=== PATIENT | female | born 1940 | race Two or more races ===

== ENCOUNTER 2019-11-30 15:51 | Inpatient (IN) | payer MEDICARE, OTHER ==
[~2019-11-30] VITALS: Ht 167.6 cm; Wt 73.5 kg
[~2019-11-30 15:51] MED LIST: CARV6.252 PO; FURO-144 PO; INSU3INS6 SQ; METO2.5T2 PO; SIMV80TA90 PO
--- NOTE | 2019-11-30 15:52 | NUR ---
PT BIBRA FRM B&C FOR SOB AND NOTER LOW O2 SATURATION. 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 KEPT RESTED AND COMFORTABLE. WILL CONTINUE TO MONITOR.
--- NOTE | 2019-11-30 16:00 | NUR ---
PT IV LINE ESTABLISHED BLOOD DRAWN AND SENT TO LAB.
--- NOTE | 2019-11-30 16:05 | NUR ---
SEEN AND EXAMINED BY .
--- NOTE | 2019-11-30 16:10 | NUR ---
CALLED LAB FOR COVID SWAB.
[2019-11-30] MEDS ORDERED: FUROSEMIDE 40 MG/4 ML VIAL ONE (16:12)
--- NOTE | 2019-11-30 16:17 | NUR ---
RT AT BEDSIDE FOR ABG.
[2019-11-30 16:28] LABS: BASOPHILS # (AUTO) 0.1 /CMM (0.0-0.2); BASOPHILS % (AUTO) 1.1 % (0.0-2.0); EOSINOPHILS % (AUTO) 0.9 % (0.0-6.0); HEMATOCRIT 32 % (33-45); HEMOGLOBIN 9.6 g/dL (11.5-14.8); LYMPHOCYTES # (AUTO) 0.9 /CMM (0.8-4.8); LYMPHOCYTES % (AUTO) 6.7 % (20.0-44.0); MEAN CORPUSCULAR HGB CONC 30 g/dl (31.0-36.0); MEAN CORPUSCULAR VOLUME 88 fL (82-100); MONOCYTES # (AUTO) 0.5 /CMM (0.1-1.30); MONOCYTES % (AUTO) 4.2 % (2.0-12.0); NEUTROPHILS # (AUTO) 11.5 /CMM (1.8-8.9); NEUTROPHILS % (AUTO) 87.1 % (43.0-81.0); PLATELET COUNT (AUTO) 283 /CMM (150-450); RED BLOOD CELL COUNT(AUTO) 3.68 MIL/uL (4.0-5.2); WHITE BLOOD COUNT (AUTO) 13.1 K/uL (4.3-11.0)
[2019-11-30] MEDS ORDERED: FUROSEMIDE 40 MG/4 ML VIAL IV ONE ×2 (16:30→23:30)
[2019-11-30 16:35] LABS: CALCIUM, SERUM 10.7 mg/dL (8.5-10.1); CARBON DIOXIDE 33 mmol/L (21-32); CHLORIDE 104 mmol/L (98-107); CREATININE 1.6 mg/dL (0.6-1.3); GLUCOSE 133 mg/dL (74-106); POTASSIUM 4.1 mmol/L (3.5-5.1); SODIUM SERUM 144 mmol/L (136-145); UREA NITROGEN, BLOOD 42 mg/dL (7-18)
[2019-11-30] MEDS ORDERED: CYAN-6 IM (16:43)
[2019-11-30] MEDS ORDERED: SERT25TA PO (16:43)
[2019-11-30] MEDS ORDERED: AMLO5TAB9 PO (16:43)
[2019-11-30] MEDS ORDERED: CLOP75TA15 PO (16:43)
[2019-11-30] MEDS ORDERED: HYDR-4075 PO (16:43)
[2019-11-30] MEDS ORDERED: BIOT10006 PO (16:43)
[2019-11-30] MEDS ORDERED: ALLO100T PO (16:43)
[2019-11-30] MEDS ORDERED: INSU3INS9 SQ (16:43)
[2019-11-30] MEDS ORDERED: LOSA100T31 PO (16:43)
[2019-11-30] MEDS ORDERED: FERR325T23 PO (16:43)
[2019-11-30] MEDS ORDERED: POTA10TA11 PO (16:43)
[2019-11-30] MEDS ORDERED: ZOLP5TAB8 PO (16:43)
[2019-11-30] MEDS ORDERED: CALC500T52 PO (16:43)
[2019-11-30] MEDS ORDERED: OMEP40CA13 PO (16:43)
[2019-11-30 16:45] LABS: ABG OXYGEN SATURATION 95.1 % (92.0-98.5); ABG PCO2 49.4 mmHg (35.0-45.0); ABG PH 7.355 (7.350-7.450); ABG PO2 83.4 mmHg (75.0-100.0); COHb 0.3 % (0.5-1.5); MetHb 0.4 % (0.0-1.5); O2Hb 94.4 % (94.0-97.0); SITE, ABG Right Radial; VENT MODE, BG 3L NC
[2019-11-30 16:47] LABS: ALANINE AMINOTRANSFERASE 15 U/L (12-78); ALBUMIN 3.4 g/dL (3.4-5.0); ALKALINE PHOSPHATASE 159 U/L (46-116); ASPARTATE AMINOTRANSFERASE 24 U/L (15-37); B-TYPE NATRIURETIC PEPTIDE 5837 PG/ML (0-125); BILIRUBIN,DIRECT 0.1 mg/dL (0.0-0.2); BILIRUBIN,TOTAL 0.4 mg/dL (0.2-1.0); TOTAL PROTEIN, SERUM 7.5 g/dL (6.4-8.2)
--- NOTE | 2019-11-30 17:19 | NUR ---
CALLED NURSING SUP FOR TELE BED.
--- NOTE | 2019-11-30 17:55 | NUR ---
NURSING SUP GAVE TELE BED 115-1.
--- NOTE | 2019-11-30 18:01 | NUR ---
REPORT GIVEN TO JESSICA MIN FOR FABI.
--- NOTE | 2019-11-30 19:55 | NUR ---
RN OPENING NOTE PT RECEIVED IN BED. PT IS A/A/ O X3. NO S/S OF DISTRESS. PT IS ON 3L O2 VIA NC SATING 97%. NO SOB NOTED. PT HAS R AC 20G PATENT FLUSHES WELL. SAFETY MEASURES IN PLACE BED AT THE LOWEST POSITION, LOCKED, SIDE RAILS UP X2, CALL LIGHT IN REACH WILL CONTINUE TO MONITOR.
[2019-11-30 20:00] VITALS: BP 139/59
[2019-11-30 20:31] VITALS: BP 139/52
[2019-11-30] MEDS: HEPARIN SODIUM, PORCINE 5000 UNITS/1 ML VIAL SQ SCH (23:27)
[2019-11-30] MEDS: ATORVASTATIN 40 MG TABLET PO SCH (23:28)
[2019-11-30] MEDS ORDERED: Z GUARD REMEDY 2 OZ OINT TP PRN (23:30)
[2019-11-30] MEDS ORDERED: ACETAMINOPHEN 325 MG TABLET PO PRN (23:30)
[2019-11-30] MEDS ORDERED: HYDROCODONE/APAP 5/325MG 1 EACH TABLET PO PRN (23:30)
[2019-11-30] MEDS ORDERED: ONDANSETRON HCL/PF 4 MG/2 ML VIAL IVP PRN (23:30)
[2019-11-30 23:39] LABS: C-REACTIVE PROTEIN 1.6 mg/dL (0.0-0.9)
[2019-12-01] VITALS (8 sets, daily range): BP systolic 129–156; BP diastolic 56–75
[2019-12-01 03:07] LABS: BILIRUBIN,URINE NEGATIVE (NEGATIVE); KETONES,URINE NEGATIVE (NEGATIVE); LEUKOCYTE ESTERASE ,URINE 2+ (NEGATIVE); NITRITE, URINE NEGATIVE (NEGATIVE); UGLUCOSE NEGATIVE (NEGATIVE); UROBILINOGEN,URINE 0.2 EU/dL (0.2)
[2019-12-01 03:08] LABS: APPEARANCE,URINE CLOUDY (CLEAR); BLOOD, URINE 2+ Ery/uL (NEGATIVE); COLOR,URINE YELLOW (YELLOW); PROTEIN,URINE 2+ mg/dl (NEGATIVE)
[2019-12-01 03:09] LABS: BACTERIA,URINE Moderate /HPF (None Seen); SQUAMOUS EPITHELIAL CELL,UR Moderate /HPF (None Seen); WBC,URINE TOO NUMEROUS TO COUN /HPF (0-3)
--- NOTE | 2019-12-01 06:42 | NUR ---
RN CLOSING NOTE PT REMAINED STABLE DURING MY SHIFT. VSS, NO SOB NOTED. WILL ENDORSE TO INCOMING SHIFT FOR FABI.
[2019-12-01 06:59] LABS: BASOPHILS # (AUTO) 0.2 /CMM (0.0-0.2); BASOPHILS % (AUTO) 1.3 % (0.0-2.0); HEMATOCRIT 31 % (33-45); HEMOGLOBIN 9.3 g/dL (11.5-14.8); LYMPHOCYTES % (AUTO) 8.2 % (20.0-44.0); MEAN CORPUSCULAR HGB CONC 30 g/dl (31.0-36.0); MEAN CORPUSCULAR VOLUME 86 fL (82-100); MONOCYTES # (AUTO) 0.7 /CMM (0.1-1.30); MONOCYTES % (AUTO) 5.6 % (2.0-12.0); NEUTROPHILS # (AUTO) 10.4 /CMM (1.8-8.9); NEUTROPHILS % (AUTO) 82.9 % (43.0-81.0); PLATELET COUNT (AUTO) 284 /CMM (150-450); WHITE BLOOD COUNT (AUTO) 12.5 K/uL (4.3-11.0)
[2019-12-01 07:21] LABS: CALCIUM, SERUM 10.8 mg/dL (8.5-10.1); CARBON DIOXIDE 31 mmol/L (21-32); CHLORIDE 102 mmol/L (98-107); CREATININE 1.5 mg/dL (0.6-1.3); GLUCOSE 78 mg/dL (74-106); MAGNESIUM 2.1 mg/dL (1.8-2.4); PHOSPHORUS 2.9 mg/dL (2.5-4.9); POTASSIUM 3.6 mmol/L (3.5-5.1); SODIUM SERUM 142 mmol/L (136-145); UREA NITROGEN, BLOOD 40 mg/dL (7-18)
[2019-12-01 07:22] LABS: CHOLESTEROL 120 mg/dL (<200); HDL CHOLESTEROL 65 mg/dL (40-60); LDL 40 mg/dL (0-99); TRIGLYCERIDES 91 mg/dL (30-150)
--- NOTE | 2019-12-01 07:30 | NUR ---
RECEIVED PATIENT IN BED. NO ACUTE DISTRESS NOTED. PATIENT ALERT & ORIENTED x3. PATIENT ON 3L OXYGEN VIA NASAL CANNULA, SATURATING WELL, BREATHING EVEN AND UNLABORED. 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 PATIENT IV ACCESS RIGHT FOREARM INTACT, PATENT, FLUSHED WELL. PATIENT SAFETY MAINTAINED. CALL LIGHT WITHIN REACH. WILL CONTINUE TO MONITOR.
[2019-12-01] MEDS: HEPARIN SODIUM, PORCINE 5000 UNITS/1 ML VIAL SQ SCH ×2 (08:14→23:41)
[2019-12-01] MEDS: SERTRALINE HCL 25 MG TABLET PO SCH (08:17)
[2019-12-01] MEDS: AMLODIPINE BESYLATE 5 MG TABLET PO SCH (08:17)
[2019-12-01] MEDS: CALCIUM CARBONATE (1250) 500 MG TABLET PO SCH (08:18)
[2019-12-01] MEDS: ALLOPURINOL 100 MG TABLET PO SCH ×2 (08:18→23:40)
[2019-12-01] MEDS: PANTOPRAZOLE 40 MG TABLET.DR PO SCH (08:18)
[2019-12-01] MEDS: CLOPIDOGREL BISULFATE 75 MG TABLET PO SCH (08:18)
--- NOTE | 2019-12-01 08:59 | NUR ---
WOUND CARE CONSULT: REVIEWED CHART, NURSING DOCUMENTATION AND PHOTOS WHICH WHICH SHOW BRUISING/DISCOLORATION TO LEGS, REDNESS AND DISCOLORATION/RASH TO BUTTOCKS PRESENT ON ADMISSION. RECOMMENDATIONS MADE FOR SKIN PROTECTION AND SKIN CARE. DISCUSSED WITH NURSING STAFF. CURRENT THADDEUS SCORE IS 14. WILL SEE PRN. M D IN AGREEMENT WITH PLAN OF CARE.
[2019-12-01] MEDS ORDERED: FERROUS SULFATE (325 MG) 325 MG/TAB TABLET PO SCH (09:00)
[2019-12-01] MEDS ORDERED: POTASSIUM CHLORIDE 10 MEQ TABLET.SA PO SCH (09:00)
[2019-12-01] MEDS ORDERED: FUROSEMIDE 40 MG/4 ML VIAL IV SCH (09:00)
[2019-12-01] MEDS ORDERED: CEFTRIAXONE 1 G VIAL IM SCH (09:30)
[2019-12-01] MEDS: CLOTRIMAZOLE 1% 15 GM TUBE TP SCH ×2 (09:32→16:56)
[2019-12-01] MEDS: CEFTRIAXONE 1 G in IV D5W 50 ML IV SCH (10:29)
[2019-12-01] MEDS: POTASSIUM CHLORIDE 20 MEQ TAB.PRT.SR PO SCH ×3 (10:30→12:09)
[2019-12-01] MEDS: FUROSEMIDE 100 MG/10 ML VIAL IV SCH ×3 (11:09→19:34)
[2019-12-01] MEDS ORDERED: QUETIAPINE FUMARATE 25 MG TABLET PO ONE (13:00)
[2019-12-01] MEDS: hydrALAZINE HCL 10 MG TABLET PO SCH (14:08)
--- NOTE | 2019-12-01 18:23 | NUR ---
PATIENT COMPLAINS OF CHEST PAIN. DR. CHANEL NOTIFIED, EKG AND TROPONIN ORDERED.
--- NOTE | 2019-12-01 18:27 | NUR ---
PATIENT IN BED. NO ACUTE DISTRESS NOTED. PATIENT ALERT & ORIENTED x3. PATIENT ON 3L OXYGEN VIA NASAL CANNULA, SATURATING WELL, BREATHING EVEN AND UNLABORED. 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 PATIENT IV ACCESS RIGHT FOREARM INTACT, PATENT, FLUSHED WELL. PATIENT SAFETY MAINTAINED. CALL LIGHT WITHIN REACH. WILL ENDORSE PLAN OF CARE TO ONCOMING NURSE FOR CONTINUITY OF CARE
--- NOTE | 2019-12-01 19:15 | NUR ---
RN OPENING NOTE PATIENT IN BED. NO ACUTE DISTRESS NOTED. PATIENT A/O x3. PATIENT ON 3L OXYGEN VIA NASAL CANNULA, SATURATING WELL, BREATHING EVEN AND UNLABORED. 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 PATIENT IV ACCESS TO RIGHT FOREARM INTACT, PATENT, FLUSHED WELL. ASCENCIO CATH DRAINING YELLOW URINE, PATIENT SAFETY MEASURE IN PLACE. BED LOCKED AND IN LOWEST POSITION CALL LIGHT WITHIN REACH WILL CONTINUE TO MONITOR PT
--- NOTE | 2019-12-01 20:40 | NUR ---
RN NOTE ENDORSED PT TO KARISHMA LOPEZ FOR FABI
--- NOTE | 2019-12-01 21:30 | NUR ---
RN OPENING NOTE PATIENT IN BED. NO ACUTE DISTRESS NOTED. PATIENT A/O x3. PATIENT ON 3L OXYGEN VIA NASAL CANNULA, SATURATING WELL, BREATHING EVEN AND UNLABORED. 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 PATIENT IV ACCESS TO RIGHT FOREARM INTACT, PATENT, FLUSHED WELL. ASCENCIO CATH DRAINING YELLOW URINE, PATIENT SAFETY MEASURE IN PLACE. BED LOCKED AND IN LOWEST POSITION CALL LIGHT WITHIN REACH. WILL CONTINUE TO MONITOR PT
[2019-12-01] MEDS: ATORVASTATIN 40 MG TABLET PO SCH (23:40)
[2019-12-02] VITALS: BP 127/63
[2019-12-02 06:43] LABS: BASOPHILS # (AUTO) 0.1 /CMM (0.0-0.2); BASOPHILS % (AUTO) 0.8 % (0.0-2.0); EOSINOPHILS % (AUTO) 1.7 % (0.0-6.0); HEMATOCRIT 31 % (33-45); HEMOGLOBIN 9.4 g/dL (11.5-14.8); LYMPHOCYTES # (AUTO) 1.2 /CMM (0.8-4.8); LYMPHOCYTES % (AUTO) 11.5 % (20.0-44.0); MEAN CORPUSCULAR HGB CONC 30 g/dl (31.0-36.0); MEAN CORPUSCULAR VOLUME 86 fL (82-100); MONOCYTES # (AUTO) 0.6 /CMM (0.1-1.30); MONOCYTES % (AUTO) 5.7 % (2.0-12.0); NEUTROPHILS # (AUTO) 8.2 /CMM (1.8-8.9); NEUTROPHILS % (AUTO) 80.3 % (43.0-81.0); PLATELET COUNT (AUTO) 264 /CMM (150-450); RED BLOOD CELL COUNT(AUTO) 3.62 MIL/uL (4.0-5.2); WHITE BLOOD COUNT (AUTO) 10.2 K/uL (4.3-11.0)
[2019-12-02 06:59] LABS: ALBUMIN 2.9 g/dL (3.4-5.0); BILIRUBIN,TOTAL 0.5 mg/dL (0.2-1.0); CALCIUM, SERUM 10.7 mg/dL (8.5-10.1); CREATININE 1.3 mg/dL (0.6-1.3); MAGNESIUM 2.1 mg/dL (1.8-2.4); PHOSPHORUS 3.3 mg/dL (2.5-4.9); POTASSIUM 3.7 mmol/L (3.5-5.1)
[2019-12-02 07:23] LABS: OCCULT BLOOD STOOL NEGATIVE (NEGATIVE)
--- NOTE | 2019-12-02 07:30 | NUR ---
RECEIVED PATIENT IN BED. NO ACUTE DISTRESS NOTED. PATIENT ALERT & ORIENTED X3. PATIENT ON 3L OXYGEN VIA NASAL CANNULA, SATURATING WELL AT 97%. 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 PATIENT RIGHT ANTECUBITAL IV ACCESS INTACT, PATENT, FLUSHED WELL. PATIENT ASCENCIO CATHETER IN PLACE, INTACT, PATENT, DRAINING TO GRAVITY. PATIENT SAFETY MAINTAINED. CALL LIGHT WITHIN REACH. WILL CONTINUE TO MONITOR.
[2019-12-02 08:00] VITALS: BP 135/69
[2019-12-02] MEDS: PANTOPRAZOLE 40 MG TABLET.DR PO SCH (08:17)
[2019-12-02] MEDS: AMLODIPINE BESYLATE 5 MG TABLET PO SCH (08:17)
[2019-12-02] MEDS: HEPARIN SODIUM, PORCINE 5000 UNITS/1 ML VIAL SQ SCH ×2 (08:17→21:07)
[2019-12-02] MEDS: SERTRALINE HCL 25 MG TABLET PO SCH (08:17)
[2019-12-02] MEDS: CALCIUM CARBONATE (1250) 500 MG TABLET PO SCH (08:17)
[2019-12-02] MEDS: CLOPIDOGREL BISULFATE 75 MG TABLET PO SCH (08:17)
[2019-12-02] MEDS: ALLOPURINOL 100 MG TABLET PO SCH ×2 (08:17→21:05)
[2019-12-02] MEDS: CLOTRIMAZOLE 1% 15 GM TUBE TP SCH ×2 (08:18→16:32)
[2019-12-02] MEDS: FUROSEMIDE 100 MG/10 ML VIAL IV SCH ×3 (09:10→16:31)
[2019-12-02] MEDS: POTASSIUM CHLORIDE 20 MEQ TAB.PRT.SR PO SCH ×3 (09:10→12:39)
[2019-12-02 09:34] LABS: IRON, SERUM 26 ug/dl (50-175); TOTAL IRON BINDING CAPACITY 188 ug/dl (250-450)
[2019-12-02 09:47] LABS: FERRITIN 126 ng/mL (8-388)
[2019-12-02] MEDS: CEFTRIAXONE 1 G in IV D5W 50 ML IV SCH (10:36)
[2019-12-02 12:00] VITALS: BP 137/55
[2019-12-02] MEDS: hydrALAZINE HCL 10 MG TABLET PO SCH (14:49)
[2019-12-02 16:00] VITALS: BP 127/70
[2019-12-02] MEDS: WARFARIN SODIUM 2.5 MG TABLET PO SCH (16:32)
[2019-12-02] MEDS: DOXYCYCLINE HYCLATE (100 MG) 100 MG TABLET PO SCH (17:16)
--- NOTE | 2019-12-02 18:32 | NUR ---
PATIENT IN BED. NO ACUTE DISTRESS NOTED. PATIENT ALERT & ORIENTED X3. PATIENT ON 3L OXYGEN VIA NASAL CANNULA, SATURATING WELL AT 97%. 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 PATIENT RIGHT ANTECUBITAL IV ACCESS INTACT, PATENT, FLUSHED WELL. PATIENT ASCENCIO CATHETER IN PLACE, INTACT, PATENT, DRAINING TO GRAVITY. PATIENT SAFETY MAINTAINED. CALL LIGHT WITHIN REACH. WILL ENDORSE PLAN OF CARE TO ONCOMING NURSE FOR CONTINUITY OF CARE
--- NOTE | 2019-12-02 19:10 | NUR ---
RN OPENING NOTES: Received pt in bed awake, A&O3. On isolation precautions for R/O Covid. On 3L/min NC tolerating well. No SOB or respiratory distress noted. A-fib on tele monitor. IV site on RAC #20 patent and flushing. Dressing c/d/i. Piña cath in place patent and draining urine via gravity. Safety measures in place. Will continue to monitor.
[2019-12-02 20:00] VITALS: BP 135/45
[2019-12-02] MEDS: MUPIROCIN OINT 2% 22 GM TUBE SCH (21:05)
[2019-12-02] MEDS: ATORVASTATIN 40 MG TABLET PO SCH (21:05)
--- NOTE | 2019-12-02 23:02 | NUR ---
RN NOTE: Pt noted to be anxious and yelling. 1058: Paged regional production manager, Jorge Luis Perdomo to give update on pt's condition. 1100: Jorge Luis Perdomo called back. Rec'd orders for Ativan 0.5mg PO once. Order noted and carried out.
[2019-12-02] MEDS ORDERED: LORAZEPAM 0.5 MG TABLET PO ONE (23:30)
[2019-12-03] VITALS: BP 137/50
[2019-12-03 04:00] VITALS: BP 139/47
[2019-12-03 05:54] LABS: BASOPHILS # (AUTO) 0.2 /CMM (0.0-0.2); BASOPHILS % (AUTO) 1.6 % (0.0-2.0); EOSINOPHILS % (AUTO) 1.9 % (0.0-6.0); HEMATOCRIT 29 % (33-45); HEMOGLOBIN 8.8 g/dL (11.5-14.8); LYMPHOCYTES # (AUTO) 1.1 /CMM (0.8-4.8); MEAN CORPUSCULAR HGB CONC 31 g/dl (31.0-36.0); MEAN CORPUSCULAR VOLUME 87 fL (82-100); MONOCYTES # (AUTO) 0.7 /CMM (0.1-1.30); MONOCYTES % (AUTO) 6.9 % (2.0-12.0); NEUTROPHILS # (AUTO) 7.4 /CMM (1.8-8.9); NEUTROPHILS % (AUTO) 77.6 % (43.0-81.0); PLATELET COUNT (AUTO) 243 /CMM (150-450); RED BLOOD CELL COUNT(AUTO) 3.32 MIL/uL (4.0-5.2); WHITE BLOOD COUNT (AUTO) 9.5 K/uL (4.3-11.0)
[2019-12-03 06:21] LABS: ALANINE AMINOTRANSFERASE 11 U/L (12-78); ALBUMIN 2.6 g/dL (3.4-5.0); ALKALINE PHOSPHATASE 130 U/L (46-116); ASPARTATE AMINOTRANSFERASE 16 U/L (15-37); BILIRUBIN,TOTAL 0.3 mg/dL (0.2-1.0); CALCIUM, SERUM 10.1 mg/dL (8.5-10.1); CARBON DIOXIDE 35 mmol/L (21-32); CHLORIDE 103 mmol/L (98-107); CREATININE 1.5 mg/dL (0.6-1.3); GLUCOSE 162 mg/dL (74-106); PHOSPHORUS 3.5 mg/dL (2.5-4.9); POTASSIUM 3.8 mmol/L (3.5-5.1); SODIUM SERUM 141 mmol/L (136-145); TOTAL PROTEIN, SERUM 6.4 g/dL (6.4-8.2); UREA NITROGEN, BLOOD 39 mg/dL (7-18)
--- NOTE | 2019-12-03 06:42 | NUR ---
RN CLOSING NOTES: Pt remains on isolation precautions for Covid. Remains on 3L/min NC tolerating well. No SOB or respiratory distress noted during shift. No acute changes noted throughout shift. IV on RAC #20 patent and flushed. Piña cath in place patent and draining urine. Safety measures in place. Will endorse to AM nurse for FABI.
[2019-12-03 08:00] VITALS: BP 130/76
--- NOTE | 2019-12-03 08:07 | NUR ---
DIRECTOR OPERATIONS BROADCAST NOTE PATIENT IN BED ,ALERT ORIENTED, [place] SPEAKING, ON 3L NC ,WITH SLIGHT SOB NOTED AT THIS TIME , SAT 98%, ON TELE MONITOR AFIB HR 74,HAVING BREAKFAST , ON FLUIDS RESTRICTION,BED IN LOWEST AND LOCKED POSITION, CALL LIGHT WITHIN REACH, WILL MONITOR
[2019-12-03] MEDS: FUROSEMIDE 100 MG/10 ML VIAL IV SCH ×3 (08:44→16:41)
[2019-12-03] MEDS: PANTOPRAZOLE 40 MG TABLET.DR PO SCH (08:45)
[2019-12-03] MEDS: CALCIUM CARBONATE (1250) 500 MG TABLET PO SCH (08:45)
[2019-12-03] MEDS: DOXYCYCLINE HYCLATE (100 MG) 100 MG TABLET PO SCH ×2 (08:45→20:56)
[2019-12-03] MEDS: SERTRALINE HCL 25 MG TABLET PO SCH (08:45)
[2019-12-03] MEDS: ALLOPURINOL 100 MG TABLET PO SCH ×3 (08:45→21:23)
[2019-12-03] MEDS: AMLODIPINE BESYLATE 5 MG TABLET PO SCH (08:45)
[2019-12-03] MEDS: MUPIROCIN OINT 2% 22 GM TUBE SCH ×2 (09:00→20:57)
[2019-12-03] MEDS: CLOTRIMAZOLE 1% 15 GM TUBE TP SCH ×2 (09:04→16:42)
[2019-12-03] MEDS: CLOPIDOGREL BISULFATE 75 MG TABLET PO SCH (09:04)
[2019-12-03] MEDS: HEPARIN SODIUM, PORCINE 5000 UNITS/1 ML VIAL SQ SCH ×2 (09:05→20:55)
--- NOTE | 2019-12-03 09:20 | NUR ---
director television note per dr villatoro ok to to give plavix and heparin at this time till inr > 2 ,will monitor
[2019-12-03] MEDS: CEFTRIAXONE 1 G in IV D5W 50 ML IV SCH (10:17)
--- NOTE | 2019-12-03 11:00 | NUR ---
rn telephonic note spoke with Corin Abreu rn outpatient services director notified that patent on Lasix iv, may need k supplement, stated will monitor for tomorrow also notified that patient become anxious at times , on o2 as ordered, will monitor closely ,still on isolation r\o covid -19
[2019-12-03 12:00] VITALS: BP 144/65
--- NOTE | 2019-12-03 13:06 | NUR ---
emergency telecommunications dispatcher note at risk for aspiration, unable to eat regular diet , Corin jacobo roading engineer notified with order to have pure diet , will f\u
[2019-12-03 14:07] LABS: PTH, INTACT 37 pg/mL (15-65)
[2019-12-03] MEDS: hydrALAZINE HCL 10 MG TABLET PO SCH (14:27)
[2019-12-03 16:00] VITALS: BP 140/90
[2019-12-03] MEDS: WARFARIN SODIUM 2.5 MG TABLET PO SCH (16:41)
--- NOTE | 2019-12-03 17:00 | NUR ---
TRAFFIC AND TRANSPORT PLANNER NOTE NOTED NOSE BLEEDING, DR LOCK NOTIFIED,AWARE THAT PATIENT ON COUMADIN ,OK TO GIVE PER DR LOCK AND INR IN AM ,WILL F\U
--- NOTE | 2019-12-03 18:25 | NUR ---
CASING PULLER NOTE FED PATIENT, ATE 100%,ALL NEEDS ATTENDED ,KEEP CLEAN DRY ,WILL MONITOR
[2019-12-03 20:00] VITALS: BP 150/69
--- NOTE | 2019-12-03 20:00 | NUR ---
RN OPENING NOTE PT RECEIVED IN BED LAYING DOWN COMFORTABLY, PT IS A/A /O X3. PT IS ON 3 L VIA NC SATING 96%, NO SOB NOTED TELE MONITOR SHOWING A FIB WITH HR IN 60s .SAFETY MEASURES IN PLACE BED AT LOWEST POSITION AND LOCKED, SIDE RAILS UP X2, CALL LIGHT IN REACH, HOB ELEVATED. WILL CONTINUE TO MONITOR.
[2019-12-03] MEDS: ATORVASTATIN 40 MG TABLET PO SCH (22:08)
[2019-12-04] VITALS: BP 128/59
[2019-12-04 04:00] VITALS: BP 152/58
--- NOTE | 2019-12-04 06:49 | NUR ---
RN CLOSING NOTE PT REMAINED STABLE DURING MY SHIFT, VSS, NO SOB NOTED, WILL ENDORSE TO INCOMING SHIFT FOR FABI.
[2019-12-04] MEDS: PANTOPRAZOLE 40 MG TABLET.DR PO SCH (07:36)
--- NOTE | 2019-12-04 07:50 | NUR ---
RN opening note Received patient in bed AO x 2-3, Georgian speaking, able to responds all stimuli. Does no appears pain or any discomfort. Skin is warm to touch, kept clean/dry, intact IV site saline lock. Respiratory even and unlabored with oxygen at 3LPM via N/C, and no distress observed, in stable vital sign. Keep bed in locked with low elevated HOB and low position of the bed. Call light within reach, will continue to monitor.
[2019-12-04 08:00] VITALS: BP 133/82
--- NOTE | 2019-12-04 08:00 | NUR ---
RN opening note Received patient in bed AO x 2-3, Tajik speaking, able to responds all stimuli. Does no appears pain or any discomfort. Skin is warm to touch, kept clean/dry, intact IV site saline lock. Respiratory even and unlabored with oxygen at 3LPM via N/C, and no distress observed, in stable vital sign. Keep bed in locked with low elevated HOB and low position of the bed. Call light within reach, will continue to monitor. Addendum: 12/04/19 at 0813 by XAVIER GOULD RN Error
[2019-12-04] MEDS: CALCIUM CARBONATE (1250) 500 MG TABLET PO SCH (08:20)
[2019-12-04] MEDS: SERTRALINE HCL 25 MG TABLET PO SCH (08:21)
[2019-12-04] MEDS: HEPARIN SODIUM, PORCINE 5000 UNITS/1 ML VIAL SQ SCH ×2 (08:21→21:05)
[2019-12-04] MEDS: AMLODIPINE BESYLATE 5 MG TABLET PO SCH (08:22)
[2019-12-04] MEDS: DOXYCYCLINE HYCLATE (100 MG) 100 MG TABLET PO SCH ×2 (08:22→21:04)
[2019-12-04] MEDS: CLOPIDOGREL BISULFATE 75 MG TABLET PO SCH (08:22)
[2019-12-04] MEDS: MUPIROCIN OINT 2% 22 GM TUBE SCH ×2 (08:35→21:04)
[2019-12-04] MEDS: CLOTRIMAZOLE 1% 15 GM TUBE TP SCH ×2 (08:35→16:16)
[2019-12-04 10:12] LABS: BASOPHILS # (AUTO) 0.1 /CMM (0.0-0.2); BASOPHILS % (AUTO) 1.4 % (0.0-2.0); EOSINOPHILS % (AUTO) 2.1 % (0.0-6.0); HEMATOCRIT 28 % (33-45); HEMOGLOBIN 8.6 g/dL (11.5-14.8); LYMPHOCYTES # (AUTO) 0.9 /CMM (0.8-4.8); LYMPHOCYTES % (AUTO) 9.1 % (20.0-44.0); MEAN CORPUSCULAR HGB CONC 31 g/dl (31.0-36.0); MEAN CORPUSCULAR VOLUME 85 fL (82-100); MONOCYTES # (AUTO) 0.5 /CMM (0.1-1.30); NEUTROPHILS # (AUTO) 8.3 /CMM (1.8-8.9); NEUTROPHILS % (AUTO) 82.4 % (43.0-81.0); PLATELET COUNT (AUTO) 250 /CMM (150-450); RED BLOOD CELL COUNT(AUTO) 3.26 MIL/uL (4.0-5.2)
--- NOTE | 2019-12-04 10:22 | NUR ---
O2sat 85% without oxygen.
[2019-12-04 10:33] LABS: ALBUMIN 2.6 g/dL (3.4-5.0); BILIRUBIN,TOTAL 0.3 mg/dL (0.2-1.0); CALCIUM, SERUM 9.7 mg/dL (8.5-10.1); CREATININE 1.3 mg/dL (0.6-1.3); MAGNESIUM 1.9 mg/dL (1.8-2.4); PHOSPHORUS 3.2 mg/dL (2.5-4.9); POTASSIUM 3.9 mmol/L (3.5-5.1); TOTAL PROTEIN, SERUM 6.2 g/dL (6.4-8.2)
--- NOTE | 2019-12-04 11:07 | NUR ---
Patient continually screaming 'help! help me!' Primary nurse asking what patient need help, spoke with DTR/Rosalinoit respiratory 96% with oxygen at 3 LPM and v/s stable. DTR verbally understanding.
[2019-12-04] MEDS: CEFTRIAXONE 1 G in IV D5W 50 ML IV SCH (11:20)
[2019-12-04 12:00] VITALS: BP 134/48
--- NOTE | 2019-12-04 13:52 | NUR ---
Given report Adela LOPEZ.
--- NOTE | 2019-12-04 13:53 | NUR ---
RN INITIAL NOTES RECEIVED PT A/O. ON VIA NC AT 3LPM, NO SOB NOTED. HOB ELEVATED. IV LINES IN PLACE. PT CLEAN AND DRY. COMFORTABLE. WILL CLOSELY MONITOR
[2019-12-04] MEDS: hydrALAZINE HCL 10 MG TABLET PO SCH (15:22)
[2019-12-04 16:00] VITALS: BP 118/72
[2019-12-04] MEDS: WARFARIN SODIUM 2.5 MG TABLET PO SCH (16:15)
--- NOTE | 2019-12-04 18:22 | NUR ---
RN CLOSING NOTES NO SIGNIFICANT CHANGE NOTED. KEPT COMFORTABLE. KEPT CLEAN AND DRY. ALL NEEDS ANTICIPATED AND MET. CALL LIGHT WITHIN REACH. WILL ENDORSE FOR CONTINUITY OF CARE.
--- NOTE | 2019-12-04 19:10 | NUR ---
RN NOTE RECEIVED PATIENT AROUND THIS TIME IN BED RESTING WITH HOB ELEVATED. A&O X3. ABLE TO MAKE NEEDS KNOWN. BREATHING IS EVEN AND NON LABORED. ON O2 3L VIA NC AND TOLERATING WELL. ON ISOLATION FOR R/O COVID AND MRSA OF NAR[place]. IV SITE ON RIGHT WRIST AND LEFT HAND. IV SITES ARE CLEAN, DRY, AND PATENT. ON ASCENCIO, URINE IS CLEAR AND YELLOW IN COLOR. IN NO APPARENT DISTRESS NOTED AT THIS TIME. CALL LIGHT IS WITHIN EASY REACH. WILL CONTINUE TO MONITOR.
[2019-12-04 20:00] VITALS: BP 146/69
[2019-12-04] MEDS: ATORVASTATIN 40 MG TABLET PO SCH (21:04)
[2019-12-04] MEDS: ALLOPURINOL 100 MG TABLET PO SCH (21:04)
[2019-12-05] VITALS: BP 147/63
--- NOTE | 2019-12-05 00:33 | NUR ---
RN NOTE RECEIVED CALL FROM LAB, PATIENT IS NEGATIVE FOR COVID.
--- NOTE | 2019-12-05 00:35 | NUR ---
RN NOTE REPORT GIVEN TO MARICRUZ FOR CONTINUATION OF CARE.
--- NOTE | 2019-12-05 00:42 | NUR ---
RODEO PERFORMER NOTES CHARGE NURSE RECEIVED CALL FROM NURSING DIRECTOR OF PHYSIOTHERAPY SERVICES REGARDING STATUS OF PATIENT. ACCORDING TO DIRECTOR OF PHYSIOTHERAPY SERVICES, SINCE PT IS COVID NEGATIVE, PT WILL BE TRANSFERRED TO DIFFERENT UNIT IN AM.
[2019-12-05 04:00] VITALS: BP 152/75
--- NOTE | 2019-12-05 06:28 | NUR ---
PODODERMATOLOGIST CLOSE NOTES PATIENT IS LAYING IN BED. A/O X3. ON 3L NASAL CANULA, NO SOB/ ACUTE RESPIRATORY DISTRESS NOTED. TELE MONITOR READING A. FIB. IV IN R WRIST #24G AND L HAND #22G ARE PATENT AND INTACT. ASCENCIO CATHETER IN PLACE, 275ML OUTPUT. APPEARS COMFORTABLE/ NO COMPLAINTS OF PAIN AT THE MOMENT. BED IS IN LOWEST LOCKED POSITION WITH SIDE RAILS UP X3, SEMI FOWLERS. CALL LIGHT IS WITHIN REACH. WILL ENDORSE TO AM NURSE.
[2019-12-05 07:07] LABS: *SPE A/G RATIO 0.8 (0.7-1.7); *SPE ALBUMIN 2.6 g/dL (2.9-4.4); *SPE ALPHA-1-GLOBULIN 0.4 g/dL (0.0-0.4); *SPE GLOBULIN, TOTAL 3.4 g/dL (2.2-3.9); *SPE M-SPIKE Not Observed g/dL (Not Observed)
--- NOTE | 2019-12-05 07:34 | NUR ---
TELE/RN OPENING NOTES RECEIVED PATIENT IS LAYING IN BED. A/O X3. ON 3L NASAL CANULA, NO SOB/ ACUTE RESPIRATORY DISTRESS NOTED. TELE MONITOR READING A. FIB 88 BPM. IV IN R WRIST #24G AND L HAND #22G ARE PATENT AND INTACT. ASCENCIO CATHETER IN PLACE. NO COMPLAINTS OF PAIN AT THE MOMENT. BED IS IN LOWEST LOCKED POSITION WITH SIDE RAILS UP X3, SEMI FOWLERS. CALL LIGHT IS WITHIN REACH. WILL CONTINUE TO MONITOR.
[2019-12-05 08:00] VITALS: BP 152/58
[2019-12-05] MEDS: PANTOPRAZOLE 40 MG TABLET.DR PO SCH (08:19)
[2019-12-05] MEDS: DOXYCYCLINE HYCLATE (100 MG) 100 MG TABLET PO SCH ×2 (08:19→20:11)
[2019-12-05] MEDS: ALLOPURINOL 100 MG TABLET PO SCH ×2 (08:20→20:11)
[2019-12-05] MEDS: CLOPIDOGREL BISULFATE 75 MG TABLET PO SCH (08:20)
[2019-12-05] MEDS: SERTRALINE HCL 25 MG TABLET PO SCH (08:20)
[2019-12-05] MEDS: AMLODIPINE BESYLATE 5 MG TABLET PO SCH (08:24)
[2019-12-05] MEDS: HEPARIN SODIUM, PORCINE 5000 UNITS/1 ML VIAL SQ SCH ×2 (08:26→20:12)
[2019-12-05] MEDS: CALCIUM CARBONATE (1250) 500 MG TABLET PO SCH (08:33)
[2019-12-05] MEDS: MUPIROCIN OINT 2% 22 GM TUBE SCH ×2 (08:33→20:19)
[2019-12-05] MEDS: CLOTRIMAZOLE 1% 15 GM TUBE TP SCH ×2 (08:33→16:57)
[2019-12-05] MEDS ORDERED: METOLAZONE 2.5 MG TABLET PO SCH (09:00)
[2019-12-05] MEDS ORDERED: CYANOCOBALAMIN 1,000 MCG/ML VIAL IM SCH (09:00)
[2019-12-05] MEDS: CEFTRIAXONE 1 G in IV D5W 50 ML IV SCH (11:44)
[2019-12-05 12:00] VITALS: BP 135/66
[2019-12-05] MEDS: hydrALAZINE HCL 10 MG TABLET PO SCH (15:21)
[2019-12-05 16:00] VITALS: BP 140/64
[2019-12-05] MEDS: WARFARIN SODIUM 2.5 MG TABLET PO SCH (17:06)
--- NOTE | 2019-12-05 19:08 | NUR ---
TELE/RN CLOSING NOTES PATIENT IS LAYING IN BED. ALERT AND ORIENTED X3. ON 3L NASAL CANULA, NO APPARENT RESPIRATORY DISTRESS NOTED. TELE MONITOR READING AFIB 68 BPM. IV ACCESS AT IN RIGHT WRIST # 24 G AND LEFT HAND # 22 G PATENT AND INTACT. ASCENCIO CATHETER IN PLACE. NO COMPLAINTS OF PAIN AT THIS TIME. SEEN AND EXAMINED BY MD WITH ORDERS MADE AND CARRIED OUT. ALL DUE MEDICATION WAS GIVEN. CHECKED PATIENT EVERY 2 HOURS. BED IS IN LOWEST LOCKED POSITION WITH SIDE RAILS UP X3. CALL LIGHT IS WITHIN REACH. WILL ENDORSED TO SUPERVISOR EXTRUSION FOR FABI
--- NOTE | 2019-12-05 19:30 | NUR ---
MS JESSICA OPEN NOTES PATIENT IS LAYING IN BED. A/O X3. ON 3L NASAL CANULA, NO SOB/ ACUTE RESPIRATORY DISTRESS NOTED. NO COMPLAINTS OF PAIN AT THE MOMENT. BED IS IN LOWEST LOCKED POSITION WITH SIDE RAILS UP X3, SEMI FOWLERS. CALL LIGHT IS WITHIN REACH. WILL CONTINUE TO MONITOR.
[2019-12-05 20:00] VITALS: BP 149/58
[2019-12-05] MEDS: ATORVASTATIN 40 MG TABLET PO SCH (21:32)
--- NOTE | 2019-12-06 06:21 | NUR ---
MS RN CLOSE NOTES PATIENT IS WATCHING TV IN BED. A/O X3. ON 3L NASAL CANULA, NO SOB/ ACUTE RESPIRATORY DISTRESS NOTED. ASCENCIO CATHETER IN PLACE 200 ML OUTPUT. IV IN L HAND #22G AND R WRIST #24 GAUGE IS PATENT AND INTACT. APPEARS COMFORTABLE/ NO COMPLAINTS OF PAIN AT THE MOMENT. BED IS IN LOWEST LOCKED POSITION WITH SIDE RAILS UP X3, SEMI FOWLERS. CALL LIGHT IS WITHIN REACH. WILL ENDORSE TO AM NURSE.
--- NOTE | 2019-12-06 07:10 | NUR ---
MS RN NOTES RECEIVED PATIENT IN BED, ALERT AND AWAKE. NO SOB. HOB ELEVATED. ON O2 AT 3L/MIN VIA NC. DENIES ANY C/O PAIN NOR DISCOMFORT AT THIS TIME. ON HEPARIN/PLAVIX/COUMADIN WITHOUT S/S OF BLEEDING OBSERVED. CONDITION VIA GURNEY. LEFT HAND # 22 AND RIGHT WRIST #24 SL INTACT NAD PATENT. BED IN LOWEST POSITION, LOCKED. BED ALARM ON. CALL LIGHT WITHIN REACH. ABLE TO VERBALIZE NEEDS.
[2019-12-06 07:52] LABS: BASOPHILS # (AUTO) 0.1 /CMM (0.0-0.2); BASOPHILS % (AUTO) 1.4 % (0.0-2.0); EOSINOPHILS % (AUTO) 2.5 % (0.0-6.0); HEMATOCRIT 34 % (33-45); HEMOGLOBIN 9.8 g/dL (11.5-14.8); LYMPHOCYTES # (AUTO) 1.2 /CMM (0.8-4.8); LYMPHOCYTES % (AUTO) 11.3 % (20.0-44.0); MEAN CORPUSCULAR HGB CONC 29 g/dl (31.0-36.0); MEAN CORPUSCULAR VOLUME 90 fL (82-100); MONOCYTES # (AUTO) 0.5 /CMM (0.1-1.30); MONOCYTES % (AUTO) 4.6 % (2.0-12.0); NEUTROPHILS # (AUTO) 8.2 /CMM (1.8-8.9); NEUTROPHILS % (AUTO) 80.2 % (43.0-81.0); PLATELET COUNT (AUTO) 277 /CMM (150-450); RED BLOOD CELL COUNT(AUTO) 3.74 MIL/uL (4.0-5.2); WHITE BLOOD COUNT (AUTO) 10.3 K/uL (4.3-11.0)
[2019-12-06 08:00] VITALS: BP 144/37
[2019-12-06] MEDS: PANTOPRAZOLE 40 MG TABLET.DR PO SCH (08:02)
[2019-12-06] MEDS: MUPIROCIN OINT 2% 22 GM TUBE SCH (08:03)
[2019-12-06] MEDS: CLOTRIMAZOLE 1% 15 GM TUBE TP SCH ×2 (08:04→16:43)
[2019-12-06 08:08] LABS: CALCIUM, SERUM 10.4 mg/dL (8.5-10.1); CREATININE 1.3 mg/dL (0.6-1.3); MAGNESIUM 2.1 mg/dL (1.8-2.4); PHOSPHORUS 3.1 mg/dL (2.5-4.9); POTASSIUM 3.4 mmol/L (3.5-5.1)
[2019-12-06] MEDS: AMLODIPINE BESYLATE 5 MG TABLET PO SCH (09:00)
[2019-12-06] MEDS: SERTRALINE HCL 25 MG TABLET PO SCH (09:49)
[2019-12-06] MEDS: DOXYCYCLINE HYCLATE (100 MG) 100 MG TABLET PO SCH (09:49)
[2019-12-06] MEDS: CALCIUM CARBONATE (1250) 500 MG TABLET PO SCH (09:49)
[2019-12-06] MEDS: ALLOPURINOL 100 MG TABLET PO SCH (09:50)
[2019-12-06] MEDS: HEPARIN SODIUM, PORCINE 5000 UNITS/1 ML VIAL SQ SCH (09:59)
[2019-12-06] MEDS: CLOPIDOGREL BISULFATE 75 MG TABLET PO SCH (09:59)
[2019-12-06] MEDS: CEFTRIAXONE 1 G in IV D5W 50 ML IV SCH (11:21)
[2019-12-06] MEDS ORDERED: POTASSIUM CHLORIDE 20 MEQ TAB.PRT.SR PO ONE (11:30)
[2019-12-06] MEDS ORDERED: MINERAL OIL 133 ML (PYXIS) 1 EA ENEMA RC ONE (14:30)
--- NOTE | 2019-12-06 14:50 | NUR ---
MS RN NOTES MANUAL BARCODE ENTERED FOR FLEET ENEMA, NOT SCANNING.
[2019-12-06] MEDS: hydrALAZINE HCL 10 MG TABLET PO SCH (15:05)
[2019-12-06 16:00] VITALS: BP 133/59
[2019-12-06] MEDS: WARFARIN SODIUM 2.5 MG TABLET PO SCH (16:46)
--- NOTE | 2019-12-06 18:10 | NUR ---
MS RN NOTES ALERT AND ORIENTED X3. NO S/S OF RESPIRATORY DISTRESS. ON ROOM AIR WITH SPO2 OF 94%. DENIES ANY C/O PAIN NOR DISCOMFORT AT THIS TIME. PATIENT FOR DISCHARGE, DISCHARGE INSTRUCTIONS GIVEN TO PATIENT ALONG WITH PACKET. REPORT GIVEN TO EMT. ALL BELONGINGS ACCOUNTED FOR. IV ACCESS REMOVED WITH CATHETER TIP INTACT. PATIENT LEFT IN STABLE CONDITION VIA GURNEY. IN NO ACUTE DISTRESS.
== END 2019-12-06 18:10 | disposition home or self-care (01) | DRG 291 ==
LOC: ER 15:52 → TELE1 18:09 → TELE 12-05 11:46 → MED 12-05 12:39
PROVIDERS: ADMIT Nurse Practitioner Acute Care
DX: I13.0 Hypertensive heart and chronic kidney disease with heart failure and stage 1 through stage 4 chronic kidney disease, or unspecified chronic kidney disease (principal); N17.0 Acute kidney failure with tubular necrosis; R53.2 Functional quadriplegia; J96.01 Acute respiratory failure with hypoxia; J96.02 Acute respiratory failure with hypercapnia; G93.41 Metabolic encephalopathy; I50.23 Acute on chronic systolic (congestive) heart failure; N39.0 Urinary tract infection, site not specified; D68.59 Other primary thrombophilia; L03.116 Cellulitis of left lower limb; L03.115 Cellulitis of right lower limb; D63.8 Anemia in other chronic diseases classified elsewhere; E11.51 Type 2 diabetes mellitus with diabetic peripheral angiopathy without gangrene; M10.9 Gout, unspecified; Z95.2 Presence of prosthetic heart valve; E66.9 Obesity, unspecified; Z68.26 Body mass index [BMI] 26.0-26.9, adult; E83.52 Hypercalcemia; E78.5 Hyperlipidemia, unspecified; I25.10 Atherosclerotic heart disease of native coronary artery without angina pectoris; I12.9 Hypertensive chronic kidney disease with stage 1 through stage 4 chronic kidney disease, or unspecified chronic kidney disease; E11.22 Type 2 diabetes mellitus with diabetic chronic kidney disease; N18.9 Chronic kidney disease, unspecified; D72.829 Elevated white blood cell count, unspecified; B96.1 Klebsiella pneumoniae [K. pneumoniae] as the cause of diseases classified elsewhere; Z22.322 Carrier or suspected carrier of Methicillin resistant Staphylococcus aureus; I87.8 Other specified disorders of veins; D50.9 Iron deficiency anemia, unspecified; I05.0 Rheumatic mitral stenosis; I48.0 Paroxysmal atrial fibrillation; Z79.01 Long term (current) use of anticoagulants
CPT/HCPCS: 36415; 36600; 71045-TC; 80048-TC; 80053-TC; 80061-TC; 80076-TC; 81000-TC; 82272-TC; 82550-TC; 82728-TC; 82803-TC; 83540-TC; 83605-TC; 83615-TC; 83735-TC; 83880; 83970; 84100-TC; 84155; 84165; 84484-TC; 85025-TC; 85610-TC; 85730-TC; 86140-TC; 87040-TC; 87081-TC; 87086-TC; 87186-TC; 93307-TC; 93970-TC; G0378; J0696; J1644; J1940; J3420; J7050; J7060; U0003-CS